=== PATIENT | female | born 1965 | race Caucasian/White ===

== ENCOUNTER → 2020-12-01 | Outpatient (CLI) | payer OTHER ==
[2020-12-01 14:48] LABS: ABSOLUTE NEUTROPHILS 2.9 thou/uL (1.4-8.2); ABSOLUTE RETIC COUNT 0.0639 10^6/uL; BASOPHILS 0.6 % (0.0-2.0); EOSINOPHILS 4.7 % (0.0-3.0); HEMATOCRIT 31.6 % (37.0-47.0); LYMPHOCYTES 26.3 % (24.0-44.0); MCH 22.8 pg (26.0-34.0); MCHC 31.5 g/dL (28.0-37.0); MCV 72.4 fL (80.0-100.0); OBSERVED RETIC COUNT 1.46 % (0.6-2.6); PLATELET COUNT 380 thou/uL (150-400); POLYS 61.4 % (36.0-66.0); RBC 4.37 mil/uL (4.20-5.00); RDW 19.5 % (10.5-14.5); WBC 4.8 thou/uL (4.0-11.0)
[2020-12-01 14:59] LABS: ALBUMIN 3.7 g/dL (3.4-5.0); CALCIUM 8.9 mg/dL (8.5-10.1); CREATININE 1.1 mg/dL (0.6-1.0); POTASSIUM 4.5 mmol/L (3.5-5.1); TOTAL BILIRUBIN 0.3 mg/dL (0.2-1.0)
[2020-12-01 15:26] LABS: FOLIC ACID 14.1 ng/mL (8.6-58.9)
[2020-12-01 15:31] LABS: OVALOCYTES FEW
[2020-12-01 15:32] LABS: ANISOCYTOSIS 2+; MICROCYTES 1+
[2020-12-01 15:33] LABS: MACROCYTES FEW
[2020-12-01 15:38] LABS: % SATURATION 6 % (20-39); IRON 31 ug/dL (50-170); TIBC 520 ug/dL (250-450)
[2020-12-02 00:06] LABS: HAPTOGLOBIN 155 mg/dL (33-346); IgA 190 mg/dL (87-352); IgG 1189 mg/dL (586-1602); IgM 49 mg/dL (26-217)
[2020-12-02 01:06] LABS: TESTOSTERONE* < 3 ng/dL (4-50)
[2020-12-02 03:06] LABS: 25-HYDROXY TOTAL 18.3 ng/mL (30.0-100.0)
[2020-12-02 04:06] LABS: HEPATITIS B SURFACE AG Negative (Negative); HEPATITIS C VIRUS AB <0.1 (0.0-0.9)
[2020-12-02 20:06] LABS: GLOBULIN TOTAL 3.4 g/dL (2.2-3.9); M-SPIKE Not Observed g/dL (Not Observed)
[2020-12-05 14:06] LABS: BETA-2 MICROGLOBULIN NG/ML 2.2 mg/L (0.6-2.4)
[2020-12-06 10:07] LABS: KAPPA FREE LIGHT CHAINS 27.1 mg/L (3.3-19.4); KAPPA/LAMBDA RATIO 1.47 (0.26-1.65); LAMBDA FREE LIGHT CHAINS 18.4 mg/L (5.7-26.3)
[2020-12-07 13:09] LABS: FREE TESTOSTERONE 0.3 pg/mL (0.0-4.2)
== END ==
LOC: LAB 13:11
PROVIDERS: ATTEND Internal Medicine
DX: D64.9 Anemia, unspecified (principal)

== ENCOUNTER → 2020-12-23 | Outpatient (CLI) | payer OTHER | LOC: MRI 12-16 12:00 | PROVIDERS: ATTEND Internal Medicine | DX: I10 Essential (primary) hypertension (principal) ==

== ENCOUNTER → 2020-12-28 | Outpatient (CLI) | payer OTHER | LOC: MRI 12:26 | PROVIDERS: ATTEND Internal Medicine | DX: Z12.39 Encounter for other screening for malignant neoplasm of breast (principal); D64.9 Anemia, unspecified; R92.8 Other abnormal and inconclusive findings on diagnostic imaging of breast ==

== ENCOUNTER → 2021-01-26 | Outpatient (CLI) | payer OTHER ==
[2021-01-26 11:42] LABS: ABSOLUTE NEUTROPHILS 3.5 thou/uL (1.4-8.2); BASOPHILS 0.9 % (0.0-2.0); HEMATOCRIT 39.9 % (37.0-47.0); HEMOGLOBIN 12.7 gm/dL (12.0-15.0); LYMPHOCYTES 24.6 % (24.0-44.0); MCH 26.4 pg (26.0-34.0); MCHC 31.9 g/dL (28.0-37.0); MCV 82.8 fL (80.0-100.0); MONOCYTES 8.1 % (1.0-8.0); PLATELET COUNT 269 thou/uL (150-400); POLYS 63.4 % (36.0-66.0); RBC 4.82 mil/uL (4.20-5.00); RDW 25.6 % (10.5-14.5); WBC 5.5 thou/uL (4.0-11.0)
[2021-01-26 12:04] LABS: % SATURATION 22 % (20-39); IRON 68 ug/dL (50-170); TIBC 305 ug/dL (250-450)
[2021-01-26 12:08] LABS: ALBUMIN 3.6 g/dL (3.4-5.0); CALCIUM 8.9 mg/dL (8.5-10.1); CREATININE 0.8 mg/dL (0.6-1.0); POTASSIUM 3.9 mmol/L (3.5-5.1); TOTAL BILIRUBIN 0.2 mg/dL (0.2-1.0)
[2021-01-26 15:25] LABS: ANISOCYTOSIS 2+; MACROCYTES FEW; MICROCYTES FEW; OVALOCYTES FEW
== END ==
LOC: LAB 11:09
PROVIDERS: ATTEND Internal Medicine
DX: D50.8 Other iron deficiency anemias (principal)